=== PATIENT | male | born 1965 | race Caucasian/White ===

== ENCOUNTER 2017-11-01 19:16 | Emergency (ER) | payer SELFPAY ==
[~2017-11-01] VITALS: Ht 177.8 cm; Wt 81.5 kg
[2017-11-01 19:48] VITALS: BP 133/78; PULSE 72; RESP 18; TEMP 98.7; O2SAT 100
[2017-11-01] MEDS ORDERED: VIST50CA PO (20:36)
--- NOTE | 2017-11-01 20:37 | PD ---
HPI Chief Complaint: Anxiety Time Seen by Provider: 20:18 Travel History International Travel<30 days: No Contact w/Intl Traveler<30days: No Traveled to known affect area: No History of Present Illness HPI This is a 52-year-old male with history of anxiety and mood disorder here for evaluation of increased anxiety over the last 2 days. He reports history of panic attacks in the past. He is not currently on any medication. He denies homicidal or suicidal ideation. He reports feeling "nervous". He denies chest pain or shortness of breath. No history of thyroid disorder. Symptom severity is mild to moderate. No aggravating or alleviating factors. PFSH Past Medical History Anxiety: Yes Depression: Yes Diminished Hearing: No Psychiatric: Yes Immunizations Current: Yes Tetanus Vaccination: > 5 Years Influenza Vaccination: No Social History Alcohol Use: No Tobacco Use: No Substance Use: No Allergies-Medications (Allergen,Severity, Reaction): Coded Allergies: No Known Allergies (Unverified , 11/01/17) Reported Meds & Prescriptions Reported Meds & Active Scripts Active No Active Prescriptions or Reported Medications Review of Systems Except as stated in HPI: all other systems reviewed are Neg General / Constitutional: No: Fever Eyes: No: Visual changes HENT: No: Headaches Cardiovascular: No: Chest Pain or Discomfort Respiratory: No: Shortness of Breath Gastrointestinal: No: Abdominal Pain Genitourinary: No: Dysuria Musculoskeletal: No: Pain Skin: No Rash Neurologic: No: Weakness Psychiatric: Positive: Anxiety, Other (difficulty sleeping) Endocrine: No: Polydipsia Physical Exam Narrative GENERAL: Alert and well-appearing 52-year-old male SKIN: Warm and dry. HEAD: Normocephalic. EYES: No scleral icterus. No injection or drainage. NECK: Supple. No enlargement of the thyroid CARDIOVASCULAR: Regular rate and rhythm without murmurs, gallops, or rubs. RESPIRATORY: Breath sounds equal bilaterally. No accessory muscle use. GASTROINTESTINAL: Abdomen soft, non-tender, nondistended. MUSCULOSKELETAL: No cyanosis, or edema. BACK: Nontender without obvious deformity. No CVA tenderness. PSYCHIATRIC: No delusional thought processes. No hallucinations. Interacting appropriately with staff. Data Data Last Documented VS Vital Signs Date Time Temp Pulse Resp B/P (MAP) Pulse Ox O2 Delivery O2 Flow Rate FiO2 11/01/17 19:58 18 11/01/17 19:48 98.7 72 133/78 96 100 MDM Medical Decision Making Medical Screen Exam Complete: Yes Emergency Medical Condition: Yes Differential Diagnosis Anxiety, insomnia, other Narrative Course This is a 52-year-old male with history of generalized anxiety disorder and mood disorder here with complaint of increasing values the last 2 days. Patient reports some generalized personal stressors currently. He denies homicidal or suicidal ideation. He is well-appearing. He is interacting appropriately. He will be prescribed hydroxyzine and referred to Sh[facility] santos for follow-up Diagnosis Primary Impression: Anxiety Referrals: [facility] (Out patient) Additional Instructions: Medication as directed. Make a follow-up appointment with her Joon santos Scripts Hydroxyzine Pamoate (Vistaril) 50 Mg Cap 50 MG PO TID Y for ANXIETY, #15 CAP 0 Refills Prov: She Aleman 11/01/17 Disposition: 01 DISCHARGE HOME Condition: Stable She Aleman Nov 01, 2017 20:37
== END 2017-11-01 20:47 | disposition home or self-care (01) ==
LOC: PHEFT 19:16
DX: F41.9 Anxiety disorder, unspecified (principal); F39 Unspecified mood [affective] disorder; F32.9 Major depressive disorder, single episode, unspecified
CPT/HCPCS: 99283